=== PATIENT | male | born 1995 | race Caucasian/White ===

== ENCOUNTER 2022-09-10 13:31 | Inpatient (IN) | payer OTHER ==
[~2022-09-10] VITALS: Ht 175.3 cm; Wt 46.4 kg
[2022-09-10 13:44] VITALS: BP 107/77
[2022-09-10 14:27] LABS: BILIRUBIN Negative (Negative); BLOOD Negative (Negative); CLARITY Cloudy (Clear); COLOR Yellow (Yellow); GLUCOSE Negative (Negative); KETONE Negative (Negative); LEUKO ESTERASE Negative (Negative); NITRITE Negative (Negative); UROBILINOGEN 0.2 E.U./dl (0.0-1.0)
[2022-09-10 14:34] LABS: URINE AMPHETAMINES Negative (1000ng/ml); URINE BARBITURATES Negative (200ng/ml); URINE BENZODIAZEPINES Negative (200ng/ml); URINE CANNABINOIDS (THC) Negative (50ng/ml); URINE COCAINE Positive (300ng/ml); URINE METHADONE Negative (300ng/ml); URINE OPIATES Negative (300ng/ml); URINE PHENCYCLIDINE Negative (25ng/ml)
[2022-09-10 14:35] LABS: EPITHELIAL CELLS 0-2; RBC 0-2 rbc/hpf (0-2); WBC 0-2 wbc/hpf (0-5)
[2022-09-10 14:35] LABS: BASO % 0.3 % (0.0-1.0); EOS # 0.2 10*3/uL (0.0-0.4); EOS % 3.3 % (1.0-4.0); HEMATOCRIT 42.5 % (42.0-52.0); LYMPH # 2.4 10*3/uL (1.3-4.4); LYMPH % 36.7 % (27.0-41.0); MEAN CELL VOLUME 89.3 fl (80.0-94.0); MEAN CORPUSCULAR HGB 30.3 pg (27.0-31.0); MEAN CORPUSCULAR HGB CONC 33.9 g/dl (33.0-37.0); MONO # 0.6 10*3/uL (0.1-1.0); MONO % 8.6 % (3.0-9.0); NEUT # 3.4 10*3/uL (2.3-7.9); NEUT % 50.9 % (47.0-73.0); PLATELET COUNT AUTOMATED 289 10*3/uL (130-400); RED BLOOD COUNT 4.76 10*6/uL (4.50-5.90); RED CELL DISTRI WIDTH 12.7 % (0-14.5); WHITE BLOOD COUNT 6.6 10*3/uL (4.8-10.8)
[2022-09-10 14:36] LABS: BACTERIA TRACE
[2022-09-10 15:01] LABS: ALKALINE PHOSPHATASE 97 U/L (46-116); BUN 7 mg/dl (9-23); CHLORIDE 100 mmol/L (98-107); POTASSIUM 3.7 mmol/L (3.4-5.1); SGPT/ALT 13 U/L (10-49)
[2022-09-10 15:02] LABS: ETHYL ALCOHOL < 3.0 mg/dl (<3)
[2022-09-10 20:00] VITALS: BP 96/73
[2022-09-11] VITALS: BP 88/42; BP 89/43
[2022-09-11 01:30] VITALS: BP 104/48
[2022-09-11 06:30] LABS: BASO % 0.6 % (0.0-1.0); EOS # 0.5 10*3/uL (0.0-0.4); EOS % 8.9 % (1.0-4.0); HEMATOCRIT 39.4 % (42.0-52.0); LYMPH # 2.7 10*3/uL (1.3-4.4); LYMPH % 50.6 % (27.0-41.0); MEAN CELL VOLUME 92.1 fl (80.0-94.0); MEAN CORPUSCULAR HGB 30.6 pg (27.0-31.0); MEAN CORPUSCULAR HGB CONC 33.2 g/dl (33.0-37.0); MEAN PLATELET VOLUME 9.5 fl (9.6-12.3); MONO # 0.5 10*3/uL (0.1-1.0); MONO % 8.3 % (3.0-9.0); NEUT # 1.7 10*3/uL (2.3-7.9); NEUT % 31.4 % (47.0-73.0); PLATELET COUNT AUTOMATED 250 10*3/uL (130-400); RED BLOOD COUNT 4.28 10*6/uL (4.50-5.90); WHITE BLOOD COUNT 5.4 10*3/uL (4.8-10.8)
[2022-09-11 07:52] LABS: BUN 7 mg/dl (9-23); CHLORIDE 110 mmol/L (98-107); CHOLESTEROL 118 mg/dL (<200); FREE T4 0.95 ng/dl (0.89-1.76); LDL CHOLESTEROL 34 mg/dL (9-159); TRIGLYCERIDES 100 mg/dl (<150)
[2022-09-11 08:00] VITALS: BP 115/50
[2022-09-11 08:33] LABS: VITAMIN D, 25-HYDROXY 51.7 ng/mL (30-100)
[2022-09-11 12:00] VITALS: BP 94/52
[2022-09-11 16:00] VITALS: BP 99/50
[2022-09-11 20:00] VITALS: BP 95/51
[2022-09-12] VITALS: BP 98/45
[2022-09-12 08:00] VITALS: BP 99/55
[2022-09-12 12:00] VITALS: BP 122/57
== END 2022-09-12 14:23 | disposition left against medical advice (07) | DRG 770 ==
LOC: ED 13:31 → 4E 15:11 → EDHOLD 15:11 → 4E 15:21
PROVIDERS: Emergency Medicine; Student in an Organized Health Care Education/Training Program; ADMIT Internal Medicine; ATTEND Internal Medicine
DX: F10.139 Alcohol abuse with withdrawal, unspecified (principal); Y90.9 Presence of alcohol in blood, level not specified; F14.10 Cocaine abuse, uncomplicated; F32.A Depression, unspecified; R51.9 Headache, unspecified; F41.0 Panic disorder [episodic paroxysmal anxiety]; Z53.29 Procedure and treatment not carried out because of patient's decision for other reasons; Z68.1 Body mass index [BMI] 19.9 or less, adult; E43 Unspecified severe protein-calorie malnutrition